=== PATIENT | male | born 1955 | race Caucasian/White ===

== ENCOUNTER 2017-05-17 09:07 | Day surgery (SDC) | payer BC ==
[~2017-05-17] VITALS: Ht 182.9 cm; Wt 88.5 kg
[2017-05-17 09:48] VITALS: BP 117/64
[2017-05-17 09:55] LABS: HEMATOCRIT 41.9 % (38.0-50.0); MCHC 34.4 G/DL (30.0-36.0); MCV 90.1 FL (86-99); MEAN PLAT.VOLUME 9.7 uM^3 (9.0-12.4); PLATELET COUNT 247 K/uL (156-360); RBC DIS.WIDTH-CV 13.2 % (11.8-14.6); RBC DIS.WIDTH-SD 43.3 % (39-53); RED BLOOD COUNT 4.65 M/uL (4.00-5.50); WHITE BLOOD COUNT 6.1 K/uL (4.1-10.2)
[2017-05-17 10:19] LABS: ALKALINE PHOSPHATASE 80 IU/L (3-129); ANION GAP 8 MEQ/L (2-14); CHLORIDE 104 MEQ/L (99-109); GFR ESTIMATE (CALCULATED) > 59 mL/min/; GLUCOSE 104 mg/dL (70-99); SAMPLE HEMOLYSIS CHECK 0; SAMPLE ICTERIC CHECK 0; SAMPLE LIPEMIA CHECK 0; SODIUM 141 MEQ/L (136-147); TOTAL BILIRUBIN 0.9 MG/DL (0.0-1.0); UREA NITROGEN (BUN) 15 mg/dL (9-23)
[2017-05-17 15:05] VITALS: BP 110/62
[2017-05-17 15:42] VITALS: BP 118/58
== END 2017-05-17 15:51 | disposition home or self-care (01) ==
LOC: SDC 09:07
PROVIDERS: Ophthalmology
DX: H35.341 Macular cyst, hole, or pseudohole, right eye (principal)
CPT/HCPCS: 80053; 85027; 93005; J0690; J1100; J2250; J2405; J2795; J3010; J3300